=== PATIENT | male | born 1995 | race African-American/Black ===

== ENCOUNTER 2022-10-10 10:24 | Emergency (ER) | payer MEDICAID, SELFPAY ==
[2022-10-10] MEDS ORDERED: Lidocaine 1% (PF) 30 ML VIAL ONE (11:43)
[2022-10-10] MEDS ORDERED: Ibuprofen 200 MG TAB ONE (11:43)
[2022-10-10] MEDS ORDERED: HYDROcodone/Acetaminophen 5/325 mg Tablet ONE (11:43)
== END 2022-10-10 12:05 | disposition home or self-care (01) ==
LOC: CSHERS 10:24
DX: K02.9 Dental caries, unspecified (principal)
CPT/HCPCS: 99282; J2001